=== PATIENT | male | born 2005 | race Caucasian/White ===

== ENCOUNTER 2024-07-13 13:53 | Outpatient (CLI) | payer OTHER, SELFPAY ==
--- NOTE | ~2024-07-13 | CT_ITS ---
CT of the Abdomen and Pelvis: Indication: Peritoneal abscess Technique: 2.5 mm axial scans were obtained through the abdomen and pelvis following intravenous adm inistration of 100 cc of Omnipaque 350. Dose reduction technique was used on this scan by utilizing a utomated exposure control and iterative reconstruction technique. The dose-length product (DLP) was 5 32.61 mGy-cm. Findings: Scans through the lung bases are unremarkable. The liver, spleen, pancreas, gallbladder, adrenals and kidneys are within normal limits. No evidence of aortic aneurysm. No lymphadenopathy. There is wall thickening of the cecum with an adjacent fluid collection measuring 3.9 x 2.3 cm in tra nsverse dimensions (axial image 99). There is an apparent suture line of the base of the cecum. There is mild right lower quadrant inflammatory change. No free air evident. Images through the pelvis were performed. Urinary bladder unremarkable. No pelvic mass seen. No pelvi c ascites. Impression: Probable 3.9 x 2.3 cm abscess adjacent to the base of the cecum with probable prior appendectomy. Cor relate clinically and with relevant history. Reviewed, dictated and finalized at [facility]. Impression: Probable 3.9 x 2.3 cm abscess adjacent to the base of the cecum with probable p rior appendectomy. Correlate clinically and with relevant history.
== END 2024-07-13 13:54 | disposition home or self-care (01) ==
LOC: ANHIMG 13:57
DX: K65.1 Peritoneal abscess (principal)
CPT/HCPCS: 74177; Q9967